=== PATIENT | male | born 1975 | race Caucasian/White ===

== ENCOUNTER → 2016-04-13 | Outpatient (CLI) | payer MEDICAID ==
--- NOTE | 2016-04-13 08:29 | CT ---
EXAMINATION TYPE: CT brain wo con DATE OF EXAM: 04/13/2016 8:14 AM COMPARISON: NONE INDICATION: Syncope and collapse DLP: 1141 mGycm, Automated exposure control for dose reduction was used. CONTRAST: None CT of the brain is performed utilizing 3 mm thick sections through the posterior fossa and 3 mm thick sections through the remaining calvarium. Study is performed within 24 hours of arrival to the hosp [facility]. No abnormal hyperdensity is present to suggest an acute intracranial hemorrhage. No mass lesion is evident. No acute infarcts are evident. Ventricles and sulci are appropriate for the patient age. Paranasal sinuses and mastoid air cells within the [id number] are clear. IMPRESSIONS: 1. Normal CT Brain.
[2016-04-13 10:32] LABS: Hemoglobin A1C 4.8 % (4.2-6.1)
--- NOTE | 2016-04-13 10:50 | US ---
EXAMINATION TYPE: US carotid duplex BILAT DATE OF EXAM: 04/13/2016 8:22 AM COMPARISON: none CLINICAL HISTORY:Syncope with episodes of abnormal gait and slurred speech, no h/o stroke. EXAM MEASUREMENTS: RIGHT: Peak Systolic Velocity (PSV) cm/sec ----- Right CCA: 100.7 ----- Right ICA: 62.8 ----- Right ECA: 71.2 ICA/CCA ratio: 0.6 RIGHT: End Diastole cm/sec ----- Right CCA: 24.9 ----- Right ICA: 23.7 ----- Right ECA: 11.9 LEFT: Peak Systolic Velocity (PSV) cm/sec ----- Left CCA: 87.8 ----- Left ICA: 83.0 ----- Left ECA: 75.2 ICA/CCA ratio: 0.9 LEFT: End Diastole cm/sec ----- Left CCA: 23.6 ----- Left ICA: 33.2 ----- Left ECA: 15.4 VERTEBRALS (direction of flow): Right Vertebral: Antegrade Left Vertebral: Antegrade TECHNOLOGIST IMPRESSION: Mild homogenous plaque with no significant stenosis seen IMPRESSION: No hemodynamic significant stenosis of the proximal internal carotid arteries bilaterall y by Doppler criteria, and indirect measurement of carotid stenosis
[2016-04-13 12:14] LABS: ALT 74 U/L (21-72); AST 41 U/L (17-59); Alkaline Phosphatase 72 U/L (38-126); Anion Gap 10 mmol/L; Blood Urea Nitrogen 19 mg/dL (9-20); Calcium 9.6 mg/dL (8.4-10.2); Carbon Dioxide 29 mmol/L (22-30); Chloride 103 mmol/L (98-107); Cholesterol 185 mg/dL (<200); Glucose 111 mg/dL (74-99); HDL Cholesterol 50 mg/dL (40-60); Non-African American GFR(MDRD) >60 (>60 ml/min/1.73 sqM); Potassium 4.7 mmol/L (3.5-5.1); Sodium 142 mmol/L (137-145); Total Bilirubin 1.3 mg/dL (0.2-1.3); Total Protein 7.7 g/dL (6.3-8.2); Triglycerides 147 mg/dL (<150)
--- NOTE | 2016-04-13 12:16 | ECHOF ---
Referral Reason:[id number] syncope and collapse MEASUREMENTS -------- HEIGHT: 182.9 cm WEIGHT: 127.0 kg BP: IVSd: 1.0 cm (0.6 - 1.1) LVIDd: 3.7 cm (3.9 - 5.3) LVPWd: 1.1 cm (0.6 - 1.1) IVSs: 1.8 cm LVIDs: 1.6 cm LVPWs: 1.9 cm Ao Diam: 4.0 cm (2.0 - 3.7) AV Cusp: 2.6 cm (1.5 - 2.6) LA Diam: 3.7 cm (2.7 - 3.8) MV EXCURSION: 18.742 mm (> 18.000) MV EF SLOPE: 92 mm/s (70 - 150) EPSS: 0.5 cm MV E Michael: 0.76 m/s MV DecT: 295 ms MV A Michael: 0.83 m/s MV E/A Ratio: 0.91 RAP: 5.00 mmHg RVSP: 13.89 mmHg FINDINGS -------- Sinus rhythm. This was a technically difficult study with suboptimal views. Left ventricular wall thickness is normal. Overall left ventricular systolic function is normal with, an EF between 55 - 60 %. The right ventricle is normal in size and function. The left atrium is normal in size. The right atrium is normal in size. The aortic valve is trileaflet, and appears structurally normal. No aortic stenosis or regurgitation. There is trace mitral regurgitation. Trace tricuspid regurgitation present. The right ventricular systolic pressure, as measured by Doppler, is 13.89mmHg. Pulmonic valve appears structurally normal. The aortic root is mildy dilated. The pericardium is normal. CONCLUSIONS -------- 1. Sinus rhythm. 2. Trace tricuspid regurgitation present. 3. The right ventricular systolic pressure, as measured by Doppler, is 13.89mmHg. 4. Pulmonic valve appears structurally normal. 5. The aortic root is mildy dilated. 6. The pericardium is normal. 7. This was a technically difficult study with suboptimal views. 8. Left ventricular wall thickness is normal. 9. Overall left ventricular systolic function is normal with, an EF between 55 - 60 %. 10. The right ventricle is normal in size and function. 11. The left atrium is normal in size. 12. The right atrium is normal in size. 13. The aortic valve is trileaflet, and appears structurally normal. No aortic stenosis or regurgitation. 14. There is trace mitral regurgitation. PRODUCTION LINE MECHANIC: Caitlyn Phelan RDCS
== END | disposition home or self-care (01) ==
LOC: RADCTMAIN 07:50
PROVIDERS: ATTEND Family Medicine
DX: I08.1 Rheumatic disorders of both mitral and tricuspid valves (principal); I77.819 Aortic ectasia, unspecified site; R55 Syncope and collapse; Z13.220 Encounter for screening for lipoid disorders; Z13.1 Encounter for screening for diabetes mellitus; Z12.5 Encounter for screening for malignant neoplasm of prostate
CPT/HCPCS: 93306; 84439; 80061; 80053; 83036; 84443; 93880; 70450; G0103

== ENCOUNTER → 2017-09-06 | Outpatient (CLI) | payer BC ==
--- NOTE | 2017-09-06 19:43 | CONS ---
CONSULTATION REASON FOR CONSULTATION: Sleep apnea. This is a 42-year-old male patient who is coming in due to concerns about obstructive sleep apnea. The patient has classical manifestations of loud snoring, witnessed apneas, waking up choking and gasping for air along with excessive tiredness and fatigue and sleepiness during the day. He has gained around 50 pounds over the past 5 years. He goes to bed around 9 to 11 p.m. and wakes up at 5 a.m. in the morning. 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 On the way back he gets very tired and sleepy, and at times he has to fight to stay awake. He has never been involved in a motor vehicle accident because of feeling drowsy or sleepy. He is a mouth-breather. His current Pendleton score is 16. No sleep paralysis, no hallucinations, no cataplexy, no restlessness in the lower extremities. PAST MEDICAL HISTORY: Negative other than obesity. PAST SURGICAL HISTORY: Negative. DRUG ALLERGIES: NOT KNOWN. MEDICATIONS: None. SOCIAL HISTORY: Nonsmoker. No history of alcoholism. No history of IV drugs. FAMILY HISTORY: Father has obstructive sleep apnea and he utilizes a CPAP machine. REVIEW OF SYSTEMS: Twelve-point review of systems was done. Positive findings are all mentioned above in the history of present illness. No history of insomnia. No nocturia. No grinding of the teeth. No sleepwalking. He wakes up with a dry mouth. No anxiety or panic attacks. No palpitation. No heartburn. No depression. PHYSICAL EXAMINATION: BP is 141/87, pulse 73, respirations 16, temperature 98.4, saturation 97% on room air. Weight is 302. Height is 6 feet 1 inch. Pendleton score 16. Neck size is 19 inches. BMI 39.8. GENERAL APPEARANCE: Calm, comfortable. No acute distress. Head is atraumatic, normocephalic. Neck is soft. There is no goiter or neck masses. The patient has bilateral enlarged tonsils, almost kissing tonsils, with a Mallampati Class 1. LUNGS: Clear to auscultation. Heart sounds are regular rate and rhythm. Normal S1, S2. No S3, S4. No murmurs. ABDOMEN: Soft, nontender. No organomegaly. EXTREMITIES: No edema. No cyanosis or clubbing. Neurologically he is awake and oriented x3. There is no focal neurological deficit. PSYCHIATRIC: Negative for anxiety or depression. Skin is negative for any wounds or ulceration. IMPRESSION: 1. Excessive sleepiness with an Pendleton score of 16, highly suspicious for obstructive sleep apnea. 2. Loud snoring. 3. Witnessed apneas. 4. Sleep fragmentation. 5. Obesity with a body mass index of 39.8. 6. Bilateral tonsillar enlargement. PLAN: 1. Avoid driving, especially when feeling drowsy or sleepy. 2. Extend sleep hours to an average of 7-8 hours of sleep per night. 3. Avoid alcoholic beverages late at nighttime. 4. Proceed with a screening polysomnogram as soon as possible, looking for any significant sleep apnea. Overall suspicion is quite high. MMODL / IJN: [id number] /
== END | disposition home or self-care (01) ==
LOC: SLEEP 16:41
PROVIDERS: ATTEND Internal Medicine Critical Care Medicine
DX: G47.10 Hypersomnia, unspecified (principal); R06.83 Snoring; J35.1 Hypertrophy of tonsils; E66.9 Obesity, unspecified; Z68.39 Body mass index [BMI] 39.0-39.9, adult
CPT/HCPCS: 99211

== ENCOUNTER 2017-09-14 13:00 | Emergency (ER) | payer BC ==
[2017-09-14 13:10] VITALS: RESP 18
[2017-09-14 13:57] LABS: Basophils # (A) 0.1 k/uL (0-0.2); Basophils % (A) 0 %; Eosinophils # (A) 0.2 k/uL (0-0.7); Eosinophils % (A) 2 %; HCT 45.6 % (39.0-53.0); HGB 15.9 gm/dL (13.0-17.5); Lymphocytes # (A) 1.7 k/uL (1.0-4.8); Lymphocytes % (A) 13 %; MCH 31.7 pg (25.0-35.0); MCHC 34.8 g/dL (31.0-37.0); Mean Platelet Volume 6.5; Monocytes % (A) 8 %; Neutrophils # (A) 9.7 k/uL (1.3-7.7); Neutrophils % (A) 75 %; Platelet Count 271 k/uL (150-450); RBC 5.01 m/uL (4.30-5.90); RDW 13.6 % (11.5-15.5); WBC 12.9 k/uL (3.8-10.6)
--- NOTE | 2017-09-14 14:09 | XR ---
EXAMINATION TYPE: XR knee complete RT DATE OF EXAM: 09/14/2017 CLINICAL HISTORY: Right knee pain for 1.5 weeks. TECHNIQUE: Three views of the right knee are obtained. COMPARISON: None. FINDINGS: There is no acute fracture/dislocation evident in right knee. There is mild joint space lo ss medial tibiofemoral compartment and patellofemoral compartment. No significant spurring is seen. There is mild to moderate diffuse subcutaneous edema seen anteriorly, laterally, and medially. A fabe lla is present. IMPRESSION: As above.
[2017-09-14 14:10] LABS: ALT 35 U/L (21-72); AST 21 U/L (17-59); Albumin 4.4 g/dL (3.5-5.0); Alkaline Phosphatase 65 U/L (38-126); Anion Gap 13 mmol/L; Blood Urea Nitrogen 17 mg/dL (9-20); Calcium 9.1 mg/dL (8.4-10.2); Carbon Dioxide 23 mmol/L (22-30); Chloride 104 mmol/L (98-107); Glucose 96 mg/dL (74-99); Potassium 4.5 mmol/L (3.5-5.1); Sodium 140 mmol/L (137-145); Total Bilirubin 0.9 mg/dL (0.2-1.3); Total Protein 7.6 g/dL (6.3-8.2); Uric Acid 5.5 mg/dL (3.5-8.5)
--- NOTE | 2017-09-14 14:57 | US ---
EXAMINATION TYPE: US venous doppler duplex LE RT DATE OF EXAM: 09/14/2017 1:45 PM COMPARISON: NONE CLINICAL HISTORY: Pain. SIDE PERFORMED: Right TECHNIQUE: The lower extremity deep venous system is examined utilizing real time linear array sonog tevin with graded compression, doppler sonography and color-flow sonography. VESSELS IMAGED: External Iliac Vein (EIV) Common Femoral Vein Deep Femoral Vein Greater Saphenous Vein * Femoral Vein Popliteal Vein Small Saphenous Vein * Proximal Calf Veins (* superficial vessels) Right Leg: Negative for DVT Grayscale, color doppler, spectral doppler imaging performed of the deep veins of the right lower ext remity. There is normal flow, compressibility, vascular waveforms. IMPRESSION: No ultrasound evidence for acute DVT in the right lower extremity.
--- NOTE | 2017-09-14 15:22 | ED ---
General Adult HPI - General Chief complaint: Extremity Injury, Lower Stated complaint: rt knee swelling Time Seen by Provider: 09/14/17 13:17 Source: patient, RN notes reviewed Mode of arrival: ambulatory Limitations: no limitations - History of Present Illness Initial comments: 42-year-old male presents to the emergency department for a chief complaint of right knee pain times one week. Patient states he was running around with his kids and his knee started hurting. He states he got better but then played golf and it hurt again. Patient denies history of gout but states his grandfather did have gout. Patient denies fevers or chills at home. Patient states it is painful to walk on. Patient denies history of DVT. Patient denies any other acute injuries. Patient has no other complaints at this time including shortness of breath, chest pain, abdominal pain, nausea or vomiting, headache, or visual changes. - Related Data Previous Rx's Medication Instructions Recorded Cephalexin [Keflex] 500 mg PO Q12HR #20 cap 09/14/17 Sulfamethox-Tmp 800-160Mg [Bactrim 2 tab PO Q12HR 10 Days #40 tab 09/14/17 DS 800-160 mg] Allergies Allergy/AdvReac Type Severity Reaction Status Date / Time No Known Allergies Allergy Verified 09/14/17 13:05 Review of Systems ROS Statement: Those systems with pertinent positive or pertinent negative responses have been documented in the HPI. ROS Other: All systems not noted in ROS Statement are negative. Past Medical History Past Medical History: No Reported History History of Any Multi-Drug Resistant Organisms: None Reported Past Surgical History: No Surgical Hx Reported Past Psychological History: No Psychological Hx Reported Smoking Status: Never smoker Past Alcohol Use History: None Reported Past Drug Use History: None Reported General Exam Limitations: no limitations General appearance: alert, in no apparent distress Head exam: Present: atraumatic, normocephalic, normal inspection Eye exam: Present: normal appearance ENT exam: Present: normal exam, mucous membranes moist Neck exam: Present: normal inspection, full ROM. Absent: tenderness, meningismus, lymphadenopathy Respiratory exam: Present: normal lung sounds bilaterally. Absent: respiratory distress, wheezes, rales, rhonchi, stridor Cardiovascular Exam: Present: regular rate, normal rhythm, normal heart sounds. Absent: systolic murmur, diastolic murmur, rubs, gallop, clicks Extremities exam: Present: tenderness (Mild tenderness along the superior anterior right knee.), normal capillary refill (Refill less than 2 seconds in pedal pulse 2+), joint swelling (Patient does have moderate swelling along the right knee as well as erythema and warmth.), other (Sensation intact in the right lower extremity.). Absent: full ROM (Patient has about 90 of flexion of the right knee and full extension.), calf tenderness (No calf tenderness. There is swelling in the calf. No redness or warmth in the calf. Negative Homans sign.) Course Vital Signs 09/14/17 13:05 Temperature 98.4 F Pulse Rate 81 Respiratory 18 Rate Blood Pressure 148/110 O2 Sat by Pulse 98 Oximetry Medical Decision Making - Medical Decision Making 42-year-old male presents to the emergency department for chief complaint of right knee pain x 1 week. Patient denies injury but says it started hurting when he is playing with his kids. It then started hurting again after golfing. No fevers or chills at home. No history of gout. On exam patient has an erythematous right knee. Tenderness to the superior anterior right knee. Patient has about 90 of flexion of the right knee and full extension. Patient can walk on it but it is painful. Neurovascular intact. White blood cell 12.9. CRP 49. The rest of labs are unremarkable. Patient likely has a cellulitis as knee is warm to the touch and slightly erythematous. Patient does have good range of motion of the knee including 90 flexion so unlikely at this time to have joint involvement. Dr. Lubin agrees and also saw the patient. Patient is aware to take antibiotics and return if he has fever or develops decreased range of motion of the right leg. He will follow up with primary care in 1-2 days. - Lab Data Result diagrams: 09/14/17 13:40 09/14/17 13:40 Lab Results 09/14/17 09/14/17 Range/Units 13:40 13:40 WBC 12.9 H (3.8-10.6) k/uL RBC 5.01 (4.30-5.90) m/uL Hgb 15.9 (13.0-17.5) gm/dL Hct 45.6 (39.0-53.0) % MCV 91.0 (80.0-100.0) fL MCH 31.7 (25.0-35.0) pg MCHC 34.8 (31.0-37.0) g/dL RDW 13.6 (11.5-15.5) % Plt Count 271 (150-450) k/uL Neutrophils % 75 % Lymphocytes % 13 % Monocytes % 8 % Eosinophils % 2 % Basophils % 0 % Neutrophils # 9.7 H (1.3-7.7) k/uL Lymphocytes # 1.7 (1.0-4.8) k/uL Monocytes # 1.0 (0-1.0) k/uL Eosinophils # 0.2 (0-0.7) k/uL Basophils # 0.1 (0-0.2) k/uL Sodium 140 (137-145) mmol/L Potassium 4.5 (3.5-5.1) mmol/L Chloride 104 (98-107) mmol/L Carbon Dioxide 23 (22-30) mmol/L Anion Gap 13 mmol/L BUN 17 (9-20) mg/dL Creatinine 0.80 (0.66-1.25) mg/dL Est GFR (CKD-EPI)AfAm >90 (>60 ml/min/1.73 sqM) Est GFR (CKD-EPI)NonAf >90 (>60 ml/min/1.73 sqM) Glucose 96 (74-99) mg/dL Uric Acid 5.5 (3.5-8.5) mg/dL Calcium 9.1 (8.4-10.2) mg/dL Total Bilirubin 0.9 (0.2-1.3) mg/dL AST 21 (17-59) U/L ALT 35 (21-72) U/L Alkaline Phosphatase 65 (38-126) U/L C-Reactive Protein 48.0 H (<10.0) mg/L Total Protein 7.6 (6.3-8.2) g/dL Albumin 4.4 (3.5-5.0) g/dL Disposition Clinical Impression: Cellulitis Disposition: HOME SELF-CARE Condition: Good Instructions: Cellulitis (ED), Knee Pain (ED) Additional Instructions: Please take antibiotics as directed. Take Motrin or Tylenol for pain. Rest ice and elevate the knee. If you began to develop worsening symptoms such as fever or decreased range of motion return to the emergency department. Otherwise follow-up with primary care in 1-2 days. Prescriptions: Cephalexin [Keflex] 500 mg PO Q12HR #20 cap Sulfamethox-Tmp 800-160Mg [Bactrim DS 800-160 mg] 2 tab PO Q12HR 10 Days #40 tab Is patient prescribed a controlled substance at d/c from ED?: No Referrals: Michael Cao MD [Primary Care Provider] - 1-2 days Time of Disposition: 15:21
[2017-09-14 15:29] VITALS: BP 140/86; PULSE 91; TEMP 99
== END 2017-09-14 15:29 | disposition home or self-care (01) ==
LOC: EC 13:00
DX: L03.115 Cellulitis of right lower limb (principal)
CPT/HCPCS: 36415; 80053; 84550; 85025; 86140; 87040; 99284

== ENCOUNTER → 2017-11-01 | Outpatient (CLI) | payer BC ==
[2017-11-01 11:00] LABS: Basophils % (A) 1 %; Eosinophils # (A) 0.2 k/uL (0-0.7); Eosinophils % (A) 3 %; HCT 45.5 % (39.0-53.0); HGB 15.4 gm/dL (13.0-17.5); Lymphocytes # (A) 1.9 k/uL (1.0-4.8); Lymphocytes % (A) 30 %; MCHC 33.8 g/dL (31.0-37.0); MCV 91.5 fL (80.0-100.0); Mean Platelet Volume 6.9; Monocytes # (A) 0.4 k/uL (0-1.0); Monocytes % (A) 7 %; Neutrophils # (A) 3.4 k/uL (1.3-7.7); Neutrophils % (A) 56 %; Platelet Count 221 k/uL (150-450); RBC 4.97 m/uL (4.30-5.90); RDW 14.2 % (11.5-15.5); WBC 6.1 k/uL (3.8-10.6)
[2017-11-01 11:00] LABS: Appearance,Urine Clear (Clear); Bilirubin,Urine Negative (Negative); Blood,Urine Negative (Negative); Color,Urine Yellow; Glucose,Urine (UA) Negative (Negative); Ketones,Urine Negative (Negative); Leukocyte Esterase,Urine Negative (Negative); Nitrite,Urine Negative (Negative); Protein,Urine Negative (Negative); Specific Gravity,Urine 1.018 (1.001-1.035); Urobilinogen,Urine <2.0 mg/dL (<2.0)
[2017-11-01 11:02] LABS: Uric Acid 7.4 mg/dL (3.5-8.5)
[2017-11-01 11:18] LABS: T4, Free (Free Thyroxine) 0.87 ng/dL (0.78-2.19)
[2017-11-01 11:32] LABS: Prostate Specific Antigen 0.76 ng/mL (0.00-4.00)
[2017-11-01 12:56] LABS: Erythrocyte Sedimentation Rate 3 mm/hr (0-15)
[2017-11-01 16:16] LABS: Rheumatoid Factor 4 IU/mL (0-15); Vitamin D 25 Hydroxy 16.8 ng/mL (30.0-100.0)
[2017-11-01 17:36] LABS: Hemoglobin A1C 4.7 % (4.0-6.0)
== END | disposition home or self-care (01) ==
LOC: LABWHC1 09:31
PROVIDERS: ATTEND Internal Medicine
DX: N40.0 Benign prostatic hyperplasia without lower urinary tract symptoms (principal); G47.33 Obstructive sleep apnea (adult) (pediatric); N52.9 Male erectile dysfunction, unspecified; M25.561 Pain in right knee; F41.9 Anxiety disorder, unspecified
CPT/HCPCS: 36415; 80061; 81003; 82306; 82550; 83036; 84153; 84403; 84439; 84443; 84550; 85025; 85652; 86038; 86200; 86431

== ENCOUNTER → 2017-11-29 | Outpatient (CLI) | payer BC ==
--- NOTE | 2017-11-29 17:30 | PN ---
PROGRESS NOTE 42-year-old male patient coming in for a compliance check regarding obstructive sleep apnea. The patient was asymptomatic, very somnolent and sleepy with an Kingston score of 16 and was diagnosed having severe SOLOMON with an AHI of 55 worse while supine. The patient was given a APAP minimum pressure of 5 and maximum pressure of 20 and today he is coming in for a compliancy check. He is using the air Touch medium-size full face mask. He reports marked improvement in sleep quality, is waking up much more alert and refreshed during the day. No hypersomnia or sleepiness. He is very weak with ongoing treatment. He is benefitting from the treatment. His AHI while on treatment is down to 0.8, and based on a 30 day compliance he has been using his CPAP on an average of 6.8 hours per night with CPAP use more than 4 hours reaching 27 out of 30. His average pressure is 12.9, and his leak factor is 18 per minute. He has no complaints whatsoever on today's evaluation. REVIEW OF SYSTEMS: 12-point review of system was done. Positive findings are mentioned above in the history of present illness. PHYSICAL EXAMINATION: BP is 159/58, pulse 72, respirations 16, temperature 98.1, Kingston score is 7, saturation 96% on room air. Weight is 302. General appearance: Calm and comfortable. Head is atraumatic, normocephalic. NECK: Supple. No JVD. No goiter or neck masses. LUNGS: Diminished breath sounds. Otherwise clear. HEART: Sounds regular rate and rhythm. Normal S1, S2. No S3. No murmurs. ABDOMEN: Soft, nontender. No organomegaly. EXTREMITIES: No cyanosis or clubbing. SKIN: Negative for any wounds or ulceration. IMPRESSION: 1. Severe obstructive sleep apnea with an AHI of 55 currently under the successful treatment with APAP. 2. Morbid obesity. Current weight is 302. 3. Severe nocturnal oxygen desaturation recovered with CPAP therapy. 4. Excessive daytime sleepiness. Recovered with CPAP therapy. Current Kingston score is down to 2. 5. Chronic fatigue recovered. 6. Bilateral tonsillar enlargement. PLAN: 1. Continue APAP treatment at the same settings. 2. Continue using the same mask interface which is an air touch F20 medium size. 3. Keep humidity level at 4. Temperature of the tubing at 68 degrees Fahrenheit. See me back in a year's time earlier if needed. Treatment is successful. MMPEPEL / IJN: [id number] /
== END | disposition home or self-care (01) ==
LOC: SLEEP 16:31
PROVIDERS: ATTEND Internal Medicine Critical Care Medicine
DX: G47.33 Obstructive sleep apnea (adult) (pediatric) (principal); E66.01 Morbid (severe) obesity due to excess calories; R53.82 Chronic fatigue, unspecified; J35.1 Hypertrophy of tonsils; Z99.89 Dependence on other enabling machines and devices

== ENCOUNTER 2019-07-08 10:16 | Emergency (ER) | payer BC ==
[2019-07-08] MEDS ORDERED: SODIUM CHLORIDE 0.9% 1,000 ML IV ONE (10:32)
--- NOTE | 2019-07-08 11:12 | XR ---
EXAMINATION TYPE: XR chest 2V DATE OF EXAM: 07/08/2019 COMPARISON: 01/16/2014 HISTORY: Cough TECHNIQUE: Frontal and lateral views of the chest are obtained. FINDINGS: Newly exaggerated interstitial lung markings. Low lung volumes. Similar Cardia mediastinal silhouette and hilar prominence. No pleural effusion or pneumothorax. IMPRESSION: New interstitial prominence is exaggerated by low lung volumes. Considerations are for a typical pneumonia, bronchitis, or scattered areas of atelectasis.
[2019-07-08 11:35] LABS: Basophils % (A) 0 %; Eosinophils % (A) 0 %; HCT 47.7 % (39.0-53.0); HGB 16.8 gm/dL (13.0-17.5); Lymphocytes % (A) 15 %; MCH 31.1 pg (25.0-35.0); MCHC 35.2 g/dL (31.0-37.0); MCV 88.3 fL (80.0-100.0); Monocytes # (A) 0.4 k/uL (0-1.0); Monocytes % (A) 7 %; Neutrophils # (A) 4.8 k/uL (1.3-7.7); Neutrophils % (A) 74 %; Platelet Count 297 k/uL (150-450); RDW 12.7 % (11.5-15.5); WBC 6.4 k/uL (3.8-10.6)
[2019-07-08] MEDS ORDERED: PANTOPRAZOLE 40 MG/10 ML VIAL IVP STA (11:36)
[2019-07-08 11:46] LABS: ALT 47 U/L (4-49); AST 51 U/L (17-59); African American GFR (CKD) >90 (>60 ml/min/1.73 sqM); Alkaline Phosphatase 45 U/L (38-126); Anion Gap 13 mmol/L; Blood Urea Nitrogen 13 mg/dL (9-20); Calcium 8.5 mg/dL (8.4-10.2); Carbon Dioxide 22 mmol/L (22-30); Chloride 96 mmol/L (98-107); Glucose 85 mg/dL (74-99); Non-African American GFR(CKD) >90 (>60 ml/min/1.73 sqM); Sodium 131 mmol/L (137-145); Total Bilirubin 1.2 mg/dL (0.2-1.3); Total Protein 7.7 g/dL (6.3-8.2)
[2019-07-08 11:52] LABS: Potassium 4.7 mmol/L (3.5-5.1)
--- NOTE | 2019-07-08 12:05 | ED ---
SOB HPI - General Chief Complaint: Shortness of Breath Stated Complaint: dehydrated/not eating Time Seen by Provider: 07/08/19 10:31 Source: patient Mode of arrival: wheelchair Limitations: no limitations - History of Present Illness Initial Comments: 44-year-old male presenting today for chief complaint of regurgitation/phlegm x weeks. Patient states that he has been treated in the last month twice with steroids for a presumed bronchitis, he states he had cough, congestion. Patient states since the treatment for bronchitis with PCP in last 3 weeks with steroids/azithromycin and yumi perez that his upper respiratory symptoms have gotten much better, Patient however states he has noted upset stomach when he began the steroids. Patient denies melena, hematochezia. Patient denies vomiting, states he did have a loose stool Monday--none since. Denies shortness of breath/chest pain. Patient is now concerned about abdomen as he has indigestion or feels like he is regurgitating when he lays flat at night or after eating. Patient states that he did a trial of him elevating the head of his bed and found that he had no symptoms. He called his doctor just to chat because he thought he may be gastric reflux from steroids and was told to come to the ER. Patient denies any current symptoms. Patient appears well, afebrile. VS within acceptable limits. - Related Data Previous Rx's Medication Instructions Recorded Cephalexin [Keflex] 500 mg PO Q12HR #20 cap 09/14/17 Sulfamethox-Tmp 800-160Mg [Bactrim 2 tab PO Q12HR 10 Days #40 tab 09/14/17 DS 800-160 mg] Famotidine [Pepcid] 20 mg PO DAILY 7 Days #7 tablet 07/08/19 Ranitidine HCl [Zantac] 75 mg PO HS 7 Days #7 tab 07/08/19 Allergies Allergy/AdvReac Type Severity Reaction Status Date / Time No Known Allergies Allergy Verified 07/08/19 10:28 Review of Systems ROS Statement: Those systems with pertinent positive or pertinent negative responses have been documented in the HPI. ROS Other: All systems not noted in ROS Statement are negative. Past Medical History Past Medical History: No Reported History History of Any Multi-Drug Resistant Organisms: None Reported Past Surgical History: No Surgical Hx Reported Past Psychological History: No Psychological Hx Reported Smoking Status: Never smoker Past Alcohol Use History: None Reported Past Drug Use History: None Reported General Exam - General Exam Comments Initial Comments: General: The patient is awake and alert, in no distress, and does not appear acutely ill. Eye: +3 mm pupils are equal, round and reactive to light, extra-ocular movements are intact. No nystagmus. There is normal conjunctiva bilaterally. No signs of icterus. No photophobia Ears, nose, mouth and throat: There are moist mucous membranes and no oral lesions. Oropharynx was not erythematous there is no tonsillar enlargement exudates or lesions. Uvula midline. No anterior cervical lymphadenopathy. Rhinorrhea, clear and bilateral nares. No tripoding, no drooling. Neck: The neck is supple, there is no tenderness or JVD. No nuchal rigidity Cardiovascular: There is a regular rate and rhythm. No murmur, rub or gallop is appreciated. Respiratory: Lungs are clear to auscultation, respirations are non-labored, breath sounds are equal. No wheezes, stridor, rales, or rhonchi. No retractions or abdominal breathing. Gastrointestinal: Soft, non-distended, non-tender abdomen without masses or organomegaly noted. There is no rebound or guarding present. Bowel sounds are u nremarkable. Musculoskeletal: Normal ROM, no tenderness. Strength 5/5. Sensation intact. Radial pulses equal bilaterally 2+. Neurological: A&O x 3. CN II-XII intact grossly, There are no obvious motor or sensory deficits. Coordination appears grossly intact. Speech appears normal, no muffling. Skin: Skin is warm and dry and no rashes or lesions are noted. No extremity edema Psychiatric: Cooperative Limitations: no limitations Course Vital Signs 07/08/19 07/08/19 10:26 13:02 Temperature 99.4 F 100.0 F H Pulse Rate 103 H 86 Respiratory 18 20 Rate Blood Pressure 115/78 118/77 O2 Sat by Pulse 96 97 Oximetry - Reevaluation(s) Reevaluation #1: Discussed with patient discrepancies with triage, he again states his "lungs feel stronger" he was worried with new slight cough with regurgitation that started at night, or when lying flat/eating. 07/08/19 [id number] Medical Decision Making - Medical Decision Making 44-year-old male presenting for abdominal discomfort after being on steroids on and off for 2 weeks as well as regurgitation at night after eating he states this causes a slight cough. Patient states when he slept upright at a 45 angle he did not have this issue and slept " like a baby" last night. No current symptoms. Patient has no chest pain. Troponin (-). CXR revealed poor inspiration, possible atypical pneumonia however myself and attending feel this poorly appreciated. Patient oxygenating well on RA, HR normalized. Patient EKG no acute findings. Patient denies any other complaints at this time appears well. I discussed discharge he is agreeable, recommended self isolation as he has low grade fever and we cannot rule out covid 19. Patient is to immediately return for worsening symptoms as we feel patient may be experiencing indigestion secondary to steroid use--he will be discharged with pepcid and zantac. Dr. Castellanos agreeable to this care plan and discharge. - Lab Data Result diagrams: 07/08/19 10:40 07/08/19 10:40 Lab Results 07/08/19 07/08/19 07/08/19 Range/Units 10:40 10:40 10:40 WBC 6.4 (3.8-10.6) k/uL RBC 5.40 (4.30-5.90) m/uL Hgb 16.8 (13.0-17.5) gm/dL Hct 47.7 (39.0-53.0) % MCV 88.3 (80.0-100.0) fL MCH 31.1 (25.0-35.0) pg MCHC 35.2 (31.0-37.0) g/dL RDW 12.7 (11.5-15.5) % Plt Count 297 (150-450) k/uL Neutrophils % 74 % Lymphocytes % 15 % Monocytes % 7 % Eosinophils % 0 % Basophils % 0 % Neutrophils # 4.8 (1.3-7.7) k/uL Lymphocytes # 1.0 (1.0-4.8) k/uL Monocytes # 0.4 (0-1.0) k/uL Eosinophils # 0.0 (0-0.7) k/uL Basophils # 0.0 (0-0.2) k/uL Sodium 131 L (137-145) mmol/L Potassium 4.7 (3.5-5.1) mmol/L Chloride 96 L (98-107) mmol/L Carbon Dioxide 22 (22-30) mmol/L Anion Gap 13 mmol/L BUN 13 (9-20) mg/dL Creatinine 0.97 (0.66-1.25) mg/dL Est GFR (CKD-EPI)AfAm >90 (>60 ml/min/1.73 sqM) Est GFR (CKD-EPI)NonAf >90 (>60 ml/min/1.73 sqM) Glucose 85 (74-99) mg/dL Calcium 8.5 (8.4-10.2) mg/dL Total Bilirubin 1.2 (0.2-1.3) mg/dL AST 51 (17-59) U/L ALT 47 (4-49) U/L Alkaline Phosphatase 45 (38-126) U/L Troponin I <0.012 (0.000-0.034) ng/mL Total Protein 7.7 (6.3-8.2) g/dL Albumin 4.0 (3.5-5.0) g/dL Disposition Clinical Impression: GERD (gastroesophageal reflux disease), Cough, Upper respiratory infection Disposition: HOME SELF-CARE Condition: Good Instructions (If sedation given, give patient instructions): Upper Respiratory Infection (ED) Additional Instructions: Please use medication as discussed. Please follow-up with family doctor in the next 2 days. Please return to emergency room if the symptoms increase or worsen or for any other concerns-IMMEDIATE RETURN FOR SHORTNESS OF BREATH/WORSENING SYMPTOMS . Prescriptions: Famotidine [Pepcid] 20 mg PO DAILY 7 Days #7 tablet Ranitidine HCl [Zantac] 75 mg PO HS 7 Days #7 tab Is patient prescribed a controlled substance at d/c from ED?: No Referrals: Michael Cao MD [Primary Care Provider] - 1-2 days Time of Disposition: 14:03
[2019-07-08 13:04] VITALS: BP 118/77; PULSE 86; RESP 20; TEMP 100
[2019-07-08] MEDS ORDERED: ACETAMINOPHEN TAB 325 MG TAB PO STA (13:13)
== END 2019-07-08 14:39 | disposition home or self-care (01) ==
LOC: EC 10:16
DX: J06.9 Acute upper respiratory infection, unspecified (principal); K21.9 Gastro-esophageal reflux disease without esophagitis
CPT/HCPCS: 36415; 93005; 80053; 84484; 85025; 71046; 99285; 96374; 96361; C9113

== ENCOUNTER → 2020-06-16 | Outpatient (CLI) | payer BC ==
--- NOTE | 2020-06-16 11:37 | PN ---
PROGRESS NOTE Martin is 45, coming in for a followup regarding obstructive sleep apnea. His last evaluation was done in 11/29/2017. The patient is 45 and he has severe SOLOMON with an AHI of 55. He is doing a lot of traveling and he is going to [place], [place] for skiing and he takes his CPAP machine with him. He is having some difficulty with humidity and the temperature of the tubing adjustment when he is in a high altitude. He is also interested in a portable CPAP unit. The patient remains to be on APAP with a minimum pressure of 5 and a maximum pressure of 20. Based on the compliance data, the patient has been utilizing the machine every night without any interruption. The patient has been averaging around 7.2 hours of CPAP use per night. CPAP use for more than 4 hours is 100% and the patient has been averaging at a pressure of 12.6 cm of water on the APAP mode. Leak is order of 29 L/minute and his AHI is down to 0.6 while on treatment. As such, this is considered to be a very successful treatment. Weight is stable and currently is around 298 pounds. He is doing a lot of snowboarding. He is quite active. He does not have any tiredness or sleepiness during the day. He is using a full-face mask which is an AirFit F20 full-face mask, medium size. REVIEW OF SYSTEMS: Fourteen-point review of system was done. Positive findings are mentioned in history of present illness. No tiredness. No sleepiness. No episodes of falling asleep. He admits that he cannot go to sleep without using his CPAP. Otherwise, he will be quite uncomfortable, short of breath and he would wake up constantly in the middle of night without the CPAP. His current Pettibone score is at 5. No heartburn. No chest pain. No shortness of breath. No swelling of lower extremities. No other complaints otherwise. PHYSICAL EXAMINATION: VITAL SIGNS: BP 137/86, pulse 66, respirations 20, temperature 98.3, saturation 97% on room air. Weight is 298, height is 6 feet 1 inch. Pettibone score is at 5. BMI 39. GENERAL APPEARANCE: Calm, comfortable. HEAD: Atraumatic, normocephalic. NECK: Supple. There is no JVD. No goiter or neck masses. LUNGS: Clear to auscultation. HEART: Heart sounds are regular rate and rhythm. Normal S1, S2. No S3, S4. No murmurs. ABDOMEN: Soft, nontender. No organomegaly. EXTREMITIES: No edema. No cyanosis or clubbing. NEUROLOGIC: Awake and alert. There is no focal neurological deficit. IMPRESSION: 1. Severe obstructive sleep apnea, AHI of 55. The patient continues to be successfully treated with APAP mode at a pressure minimum of 5 and maximum of 20. Compliance data was checked. 2. Hypersomnia, recovered. Pettibone score is down to 5. 3. Obesity, body mass index 39.3, losing weight. 4. Hypersomnia, recovered. 5. Snoring, recovered. 6. Chronic fatigue, recovered. PLAN: 1. Refill the supplies including the AirFit F20 full-face mask and the hose and the tubing and the filters. 2. No need for adjustment. 3. Prescription was given for a portable CPAP unit and I would choose a pressure of 12 cm of water knowing that the patient's average pressure delivered by his APAP mode is at 12.6. 4. See me back in a year's time in followup. MMODL / IJN: [id number] /
== END ==
LOC: SLEEP 09:38
PROVIDERS: ATTEND Internal Medicine Critical Care Medicine
DX: G47.33 Obstructive sleep apnea (adult) (pediatric) (principal); E66.9 Obesity, unspecified; Z68.39 Body mass index [BMI] 39.0-39.9, adult

== ENCOUNTER → 2021-09-14 | Outpatient (CLI) | payer BC ==
--- NOTE | 2021-09-14 16:27 | P.PN ---
Subjective Progress Note Date: 09/14/21 09/14/2021, seeing the patient for a follow-up in my office regarding his obstructive sleep apnea. The patient is coming in for an annual check. He is a 46-year-old male patient with known history of severe obstructive sleep apnea with an AHI of 55. He still doing a lot of traveling back and forth to [facility] where the patient goes to ski he always cases CPAP machine with him. Currently he has a ResMed 10 and the patient is set at APAP mode, the pressure minimum of 5 and a maximum of 20. He is still using the air touch fullface mask. Based on the compliance data, I noted that the patient has been using his machine on average of 7.2 hours per night. He is using the machine more than 4 hours 100% of the time. The average pressure delivered vitamin she is around 13.8 cm of water. No leaks around the mask. His AHI is down to 0.3 indicating successful treatment. On few occasions, he felt that the pressure is quite low and he is requesting some elevation or rise in his CPAP pressures. Note that the patient's body weight is up. He is to weigh around 198 pounds and currently is up to 315 pounds. No hypersomnia and sleepiness during the day. No other complaints otherwise. No other new onset comorbidities. His machine is still functional. Objective - Exam Temperature is 98.3. Pulse is 68, respirations 16 with a weight of 315 and the height is 6 feet and 1 inch. His BP is 149/91 with a pulse ox of 98% on room air oxygen. Gen. appearance the patient is calm and comfortable likely distress. He is obese. The patient appeared well nourished and normally developed. Vital signs as documented. Head exam is unremarkable. No scleral icterus or corneal arcus noted. Neck is without jugular venous distension, thyromegaly, or carotid bruits. Carotid upstrokes are brisk bilaterally. Lungs are clear to auscultation and percussion. Cardiac exam reveals the PMI to be normally sized and situated. Rhythm is regular. First and second heart sounds normal. No murmurs, rubs or gallops. Abdominal exam reveals normal bowel sounds, no masses, no organomegaly and no aortic enlargement. Extremities are nonedematous and both femoral and pedal pulses are normal.Examination of the skin revealed no evidence of significant rashes, suspicious appearing nevi or other concerning lesions.Neurologically, the patient is awake and alert and the patient does not have any focal neurological deficit. Cranial nerves are essentially intact. Assessment and Plan Plan: Severe symptomatically obstructive sleep apnea with an AHI of 55. Adequately treated with a APAP mode ResMed unit, pressures minimum of 5 and a maximum of 20. Extremely compliant. Clinical response is adequate. Hypersomnia recovered Obesity with interval weight gain current weight is up to turn and 15 pounds Chronic fatigue, recovered Plan We'll keep the patient in a APAP mode. His average pressure delivered by the machine is around 13.8 cm of water and the patient is requesting higher pressures. I'm recommending to switch his APAP mode to a minimum pressure of 10 and a maximum pressure of 20. I will also set up a 15 minute ramp time with a starting pressure of 8 cm of water. We'll keep the same mask interface. Encourage weight loss. Implement sleep hygiene measures. Refilled the supplies. See me back in a years time in follow-up.
== END ==
LOC: SLEEP 15:47
PROVIDERS: ATTEND Internal Medicine Critical Care Medicine
DX: G47.33 Obstructive sleep apnea (adult) (pediatric) (principal); E66.9 Obesity, unspecified; Z99.89 Dependence on other enabling machines and devices

== ENCOUNTER → 2022-03-22 | Outpatient (CLI) | payer BC ==
--- NOTE | 2022-03-22 15:28 | XR ---
EXAMINATION TYPE: XR shoulder complete RT DATE OF EXAM: 03/22/2022 3:22 PM INDICATION: Patient age:Male; 46 years old; Reason for study: S49.91XA UNSP INJURY OF RIGHT SHOULDER AND UPPER A; COMPARISON: None TECHNIQUE: The right shoulder was examined in AP, internally rotated and scapular Y projections. . FINDINGS: No evidence of acute osseous pathology, joint dislocation, or soft tissue swelling. Osteophyte/loose body demonstrated at the AC joint. The remaining portions of the visualized chest are unremarkable. IMPRESSION: No acute osseous pathology.
== END | disposition home or self-care (01) ==
LOC: RADXRMAIN 15:11
PROVIDERS: ATTEND Internal Medicine
DX: S49.91XA Unspecified injury of right shoulder and upper arm, initial encounter (principal)

== ENCOUNTER → 2023-03-15 | Outpatient (CLI) | payer BC ==
--- NOTE | 2023-03-19 12:16 | MR ---
EXAMINATION TYPE: MR shoulder RT wo con DATE OF EXAM: 03/15/2023 COMPARISON: None HISTORY: Right shoulder pain, loss of strength for 1 year. Dislocated 1 year ago due to fall. TECHNIQUE: Multiplanar, multisequence imaging of the right shoulder is performed without contrast. FINDINGS: The osseous structures are intact and there is no bone contusion or fracture. There is no Hill-Sachs deformity. There is moderate acute and chronic inflammatory changes of the AC joint but no significant shoulder impingement. There are a few tiny subchondral cysts in the lateral humeral head otherwise the glenohumeral joint i s intact without significant degeneration. There are small rim rent tears of the supraspinatus tendon but no retraction of musculotendinous junc tion. The infraspinatus tendon and subscapularis tendon are intact. The biceps tendon is normal in signal intensity and position within the bicipital groove and the rina ps anchor is intact. Grossly the cartilaginous labrum is intact. IMPRESSION: 1. Small rim rent tears of the supraspinatus tendon. 2. Acute chronic degenerative changes AC joint described above.
== END | disposition home or self-care (01) ==
LOC: RADMRIMAIN 18:28
PROVIDERS: ATTEND Internal Medicine
DX: M19.011 Primary osteoarthritis, right shoulder (principal); M67.813 Other specified disorders of tendon, right shoulder; W19.XXXA Unspecified fall, initial encounter

== ENCOUNTER → 2024-07-16 | Outpatient (CLI) | payer BC ==
[~2024-07-16] MED LIST: REGADENOSON 0.4 MG/5 ML SYRINGE IV PRN
--- NOTE | 2024-07-16 08:49 | US ---
EXAMINATION TYPE: US carotid duplex BILAT DATE OF EXAM: 07/16/2024 COMPARISON: US(04/13/2016) CLINICAL INDICATION: Male, 49 years old with history of I65.23 CAROTID STENOSIS; family hx of [place] Additional History: .... TECHNIQUE: Grayscale, color Doppler and spectral Doppler evaluation of the bilateral carotid systems and vertebral arteries. Indirect Doppler criteria was utilized. FINDINGS: EXAM MEASUREMENTS: RIGHT: Peak Systolic Velocity (PSV) cm/sec ----- Right CCA: 115 ----- Right ICA: 69.6 ----- Right ECA: 105 ICA/CCA ratio: 0.6 RIGHT: End Diastole cm/sec ----- Right CCA: 25.3 ----- Right ICA: 12.8 ----- Right ECA: 15.2 LEFT: Peak Systolic Velocity (PSV) cm/sec ----- Left CCA: 84.9 ----- Left ICA: 88.5 ----- Left ECA: 90.4 ICA/CCA ratio: 1.0 LEFT: End Diastole cm/sec ----- Left CCA: 15.6 ----- Left ICA: 29.9 ----- Left ECA: 12.3 VERTEBRALS (direction of flow): Right Vertebral: Antegrade Left Vertebral: Antegrade Rhythm: Normal MODULAR SET CREW MEMBER NOTES: Limited exam due to vessel tortuosity Slightly elevated velocities seen in Lt prox CCA, no significant stenosis or plaque seen bilaterally Color Doppler imaging shows patency with blood flow throughout the carotid artery. Spectral waveforms are within normal limits. IMPRESSION: Right: No hemodynamically significant stenosis. Left: No hemodynamically significant stenosis. Criteria for Assigning % of Stenosis / Diameter reduction (Estimation based on the indirect measurements of the internal carotid artery velocities (ICA PSV). 1. Normal (no stenosis)=ICA PSV < 180 cm/s: ratio < 2.0: ICA EDV<40 cm/s. 2. Less than 50% stenosis=ICA PSV < 180 cm/s: ratio < 2.0: ICA EDV<40 cm/s. 3. 50 to 69% stenosis=ICA PSV of 180 to 230 cm/s: ration 2.0 ? 4.0: ICA EDV 40-100 cm/s. PSV 125-180 cm/sec and ICA/CCA PSV Ratio ? 2.0 is also consistent with 50-69% stenosis 4. Greater than 70% stenosis to near occlusion= ICA PSV > 230 cm/s: ratio > 4.0: ICA EDV > 100 cm/s. 5. Near occlusion= ICA PSV velocities may be low or undetectable: variable ratio and ICA EDV. 6. Total occlusion=unable to detect flow. [facility], , 07/16/2024 8:47 AM
--- NOTE | 2024-07-16 12:06 | CA ---
Lexiscan Nuclear Stress Test Report Name: Martin Galicia Exam Date: 07/16/2024 09:53 Exam Location: [facility] Ht (in): 73 Wt (lb): 302 BSA: 2.56 Ordering Phys: Michael Cao MD Referring Phys: AMBROSIO Technologist: HAKEEM Age: 49 Gender: M : 1975 Procedure CPT: Indications: I65.23 CAROTID STENOSIS R00.2 PALPITATIONS ICD-10 Codes: Patient History: Chest pain, shortness of breath and palpitations, Medications: LEXAPRO,,,, VIVANCE,,,, SALENDFIL,,, Meds past 24 hrs: Pretest Chest Pain: STRESS TEST Lexiscan Protocol Exercise Duration (min:sec): 02:[address] Depressions (mm): Angina Score: Baldwin Score: Resting HR (bpm): 52 Peak HR (bpm): 80 Resting BP (mmHg): 121 / 87 Peak BP (mmHg): 120 / 72 MPHR: 170 Target HR: 145 % MPHR: 47 METS: 1.0 Total Dose: Peak Dose: Atropine: Double Product: 9600 BP Response: Stress Termination: INFUSION COMPLETE Stress Symptoms: NO SYMPTOMS Stress Summary: ECG ANALYSIS Resting ECG: Stress ECG: CONCLUSIONS RESTING EKG: [Normal sinus rhythm, normal EKG] Patient recieved IV infusion of Lexiscan 0.4mg and at peak infusion STRESS EKG showed: [No significant ST-T wave changes diagnostic for ischemia by ST segment analysis] ARRYTHMIAS: [No ectopic rhythms or sustained arrythmias] CONCLUSION: 1. Normal hemodynamic and clinical response to Lexiscan infusion. 2. Non-ischemic EKG response to lexiscan infusion Please refer to the nuclear imaging portion of this stress test for complete interpretation of the study. Dr Beni Rivero (Electronically Signed) Final Date: 16 July 2024 12:05
--- NOTE | 2024-07-16 12:51 | NM ---
EXAMINATION TYPE: NM stress lexiscan cardiolite DATE OF EXAM: 07/16/2024 COMPARISON: NONE CLINICAL INDICATION: Male, 49 years old with history of I65.23 CAROTID STENOSIS R00.2 PALPITATIONS; c hest pain and difficulty breathing. History of hypercholesterolemia. TECHNIQUE: After the intravenous administration of 9.6 mCi Tc 99m Sestamibi - Cardiolite resting SPE CT images acquired 42 minutes post injection. The patient received 0.4mg Lexiscan, 26.6 mCi Tc 99m Sestamibi - Stress images obtained [address] injection FINDINGS: Review of stress and rest SPECT images demonstrates no distinct perfusion abnormality. Gated analysi s shows normal wall motion with an estimated left ventricular ejection fraction of 64 %. IMPRESSION: No scintigraphic evidence for reversible ischemia. [facility], , 07/16/2024 12:49 PM
== END | disposition home or self-care (01) ==
LOC: RADUSWWP 07:34
PROVIDERS: ATTEND Internal Medicine
DX: I65.23 Occlusion and stenosis of bilateral carotid arteries (principal); R07.9 Chest pain, unspecified; E78.00 Pure hypercholesterolemia, unspecified
CPT/HCPCS: 93017; 93880; 78452; A9500; J2785